=== PATIENT | female | born 1960 | race Caucasian/White ===

== ENCOUNTER 2017-04-09 10:15 | Emergency (ER) | payer BC ==
[2017-04-09 10:23] VITALS: RESP 16; TEMP 98.2
--- NOTE | 2017-04-09 10:32 | EDPHY ---
H & P Time Seen by Provider: 04/09/17 10:29 HPI/ROS: Chief complaint. Knee swelling HPI. Patient is a 56-year-old female presents emergency department with left knee pain and swelling. She has a history of bone on bone knee problems. She has had recent exams by orthopedist who at this point are opting to treat her symptomatically. She has been walking and riding a bicycle which seems to bother it a little but then she has played tennis twice in the last 2 weeks. No injury while playing tennis but afterwards she has pain and swelling especially to the lateral aspect of her left knee. Today she had some radiation to the outside of her left thigh and outside of her left calf but no calf pain and no medial thigh pain. No swelling other than to her knee. No low back pain. ROS Constitutional. no fever/chills, no weakness Eyes. no problems with vision ENT. no sore throat, no nasal drainage Cardiovascular. no chest pain Respiratory. no shortness of breath, no cough Abdominal. no abdominal pain, no nausea/vomiting, no diarrhea . no problems urinating MS. Left knee pain and swelling Skin. no rash Lymph. no swollen glands Neuro. no headache, no dizziness, no difficulty walking or with speech Past Medical/Surgical History: Past medical history coronary bypass, left knee surgery, hypothyroidism, melanoma Social History: , nonsmoker, no alcohol Smoking Status: Never smoked Physical Exam: General Appearance: Alert well-developed female mild distress vital signs are stable Eyes: Pupils equal and round no pallor or injection. ENT, Mouth: Mucous membranes are moist. Respiratory: There are no retractions, lungs are clear to auscultation. Cardiovascular: Regular rate and rhythm. Gastrointestinal: Abdomen is soft and nontender, no masses, bowel sounds normal. Neurological: Awake and alert, sensory and motor exams grossly normal. Skin: Warm and dry, no rashes. Musculoskeletal: Neck is supple nontender. Extremities mild swelling to the left knee. Lateral joint line tenderness. No instability distress. No pain to the left hip with range of motion or palpation. No calf pain or swelling. Psychiatric: Patient is oriented X 3, there is no agitation. Constitutional: Initial Vital Signs Temperature (C) 36.8 C 04/09/17 10:18 Heart Rate 75 04/09/17 10:18 Respiratory Rate 16 07/30/17 10:18 Blood Pressure 133/72 H 04/09/17 10:18 O2 Sat (%) 98 04/09/17 10:18 O2 Delivery Mode Room Air Allergies/Adverse Reactions: No Known Allergies Allergy (Unverified 08/03/15 07:40) Home Medications: Medication Instructions Recorded Multivitamins [Multivitamin (*)] 1 tab PO DAILY 09/09/13 Atorvastatin Calcium [Lipitor 40 40 mg PO DAILY 08/01/15 mg (*)] Levothyroxine [Synthroid 100 mcg 100 mcg PO DAILY 08/01/15 (*)] buPROPion XL [Wellbutrin 150mg XL] 300 mg PO DAILY 08/03/15 Amphet Asp and D/Amphet [Adderall 10 mg PO BID 12/12/16 10 MG (*)] Cholecalciferol Vit D3 [Vitamin D3 5,000 units PO DAILY 12/12/16 (*)] [place]-3 Fatty Acids [Fish Oil 1000 1,000 mg PO DAILY 12/12/16 mg (*)] Zolpidem Tartrate [Ambien 5MG (*)] 10 mg PO HS PRN 12/12/16 oxyCODONE/APAP 5/325 [Percocet 1 tab PO Q4-6PRN PRN #20 tab 04/09/17 5/325] Medical Decision Making - Diagnostics Imaging Results: Imaging Impressions Knee X-Ray 04/09/17 10:57 Impression: Findings consistent with degenerative osteoarthritis have progressed in all 3 compartments. X-ray left knee shows degenerative arthritis that has progressed from previous x -rays. No evidence for fracture dislocation ED Course/Re-evaluation: Re-evaluation at 11:45 a.m. and patient, her and I discussed imaging study results, treatment plan including criteria for return importance of follow -up and further evaluation. She expresses understanding and agreement Patient has a splint at home Differential Diagnosis: I think that this is degenerative arthritis. Exacerbation of her discomfort from playing tennis. I also considered DVT and hip injury Departure - Departure Disposition: Home, Routine, Self-Care Clinical Impression: Left knee pain Qualifiers: Chronicity: acute Qualified Code(s): M25.562 - Pain in left knee Condition: Good Instructions: Knee Pain (ED) Additional Instructions: Ice and elevation next 24 hours. Wear your splint next 2-3 days. Easy activity. Ibuprofen or Aleve for inflammation. Percocet as needed for pain. Return for worsening symptoms. Follow up with Dr. Walker and Jamil for further evaluation Referrals: Garcia Cole MD [Primary Care Provider] - As per Instructions Garcia Walker MD [Medical Doctor] - As per Instructions Phuong Negron MD [Medical Doctor] - As per Instructions Prescriptions: oxyCODONE/APAP 5/325 [Percocet 5/325] 1 tab PO Q4-6PRN PRN #20 tab PRN Reason: Pain, Moderate
[2017-04-09 12:17] VITALS: BP 144/68; PULSE 79; O2SAT 94
== END 2017-04-09 12:16 | disposition home or self-care (01) ==
DX: M25.562 Pain in left knee (principal); Z85.820 Personal history of malignant melanoma of skin; Z95.1 Presence of aortocoronary bypass graft

== ENCOUNTER → 2017-04-24 | Outpatient (CLI) | payer BC | LOC: BMCIMAGING 15:20 | PROVIDERS: ATTEND Internal Medicine Rheumatology | DX: M19.041 Primary osteoarthritis, right hand (principal); M19.042 Primary osteoarthritis, left hand ==

== ENCOUNTER → 2017-06-21 | Outpatient (CLI) | payer BC, OTHER | LOC: FIMAGING 14:34 | PROVIDERS: ATTEND Orthopaedic Surgery | DX: M17.12 Unilateral primary osteoarthritis, left knee (principal) ==

== ENCOUNTER 2017-07-19 06:11 | Inpatient (IN) | payer BC ==
[~2017-07-19 06:11] MED LIST: ROPIVACAINE 0.2% 80 MG, EPINEPHrine 0.2 MG, KETOROLAC TROMETHAMINE 30 MG in BAG 0 ML IU ONE; TRANEXAMIC ACID 3,000 MG in NS 50 ML IRR ONE
[2017-07-19] MEDS ORDERED: ceFAZolin 2 GM/SWFI 2 GM/20 ML SYR IVP ONE (06:39)
[2017-07-19] MEDS ORDERED: FAMOTIDINE 20 MG TAB PO ONE (06:39)
[2017-07-19] MEDS ORDERED: DEXAMETHASONE 4 MG/ML VIAL IVP ONE (06:39)
[2017-07-19] MEDS ORDERED: ACETAMINOPHEN 325 MG TAB PO ONE (06:39)
[2017-07-19] MEDS ORDERED: LR 1,000 ML IV ONE (06:40)
[2017-07-19] MEDS ORDERED: LIDOCAINE 1% 2 ML INJ ID PRN (06:40)
[2017-07-19] MEDS ORDERED: TRANEXAMIC ACID 3,000 MG/50 ML BAG IRR ONE (06:46)
[2017-07-19] MEDS ORDERED: VANCOMYCIN 1 GM VIAL ONE (06:46)
--- NOTE | 2017-07-19 07:10 | PDHPUP ---
History & Physical Update H&P update statement: This history and physical update is based on an assessment of the patient which was completed after admission or registration (within 24 hours), but prior to the surgery/procedure. H&P update: H&P reviewed & patient examined, no change in patient's condition since H&P completed
--- NOTE | 2017-07-19 07:49 | PDANEPAE ---
ANE Past Medical History - Cardiovascular History Hx Hypertension: Yes Hx Arrhythmias: No Hx Coronary Artery / Peripheral Vascular Disease: Yes Hx CHF / Valvular Disease: No Hx Palpitations: No Cardiovascular History Comment: CABG 09/10/2013 - Pulmonary History Hx COPD: No Hx Asthma/Reactive Airway Disease: No Hx Recent Upper Respiratory Infection: No Hx Oxygen in Use at Home: No Hx Sleep Apnea: No Sleep Apnea Screening Result - Last Documented: Negative - Neurologic History Hx Cerebrovascular Accident: No Hx Seizures: No Hx Dementia: No - Endocrine History Hx Diabetes: No Obesity: no - Renal History Hx Renal Disorders: No - Liver History Hx Hepatic Disorders: No - Neurological & Psychiatric Hx Hx Neurological and Psychiatric Disorders: No - Cancer History Hx Cancer: Yes Cancer History Comment: MELANOMA REMOVED 12/2012 - Congenital Disorder History Hx Congenital Disorders: No - GI History Hx Gastrointestinal Disorders: Yes Gastrointestinal History Comment: 20 YEARS AGO ULCER - Other Health History Other Health History: PSORIASIS ON SCALP- SM - Chronic Pain History Chronic Pain: No - Surgical History Prior Surgeries: BROWLIFT 8 YEARS AGO. MENSICUS TEAR 2010 ANE Review of Systems Review of Systems: - Exercise capacity METS (RN): 5 METS ANE Patient History - Allergies Allergies/Adverse Reactions: No Known Allergies Allergy (Unverified 08/03/15 07:40) - Home Medications Home Medications: Atorvastatin Calcium [Lipitor 40 mg (*)] 40 mg PO DAILY 08/01/15 [Last Taken ] Levothyroxine [Synthroid 100 mcg (*)] 100 mcg PO DAILY 08/01/15 [Last Taken 04/27] buPROPion XL [Wellbutrin 150mg XL] 300 mg PO DAILY 08/03/15 [Last Taken 07/19/17 ] Amphet Asp and D/Amphet [Adderall 10 MG (*)] 10 mg PO BID 12/12/16 [Last Taken 07/19/17] Zolpidem Tartrate [Ambien 5MG (*)] 10 mg PO HS PRN 12/12/16 [Last Taken 07/18/17 ] Folic Acid [Folic Acid 1 MG (*)] 1 mg PO DAILY 07/03/17 [Last Taken 07/12/17] Losartan Potassium [Cozaar 25 mg (*)] 25 mg PO DAILY 07/03/17 [Last Taken ] Venlafaxine Xr [Effexor Xr 37.5MG (*)] 37.5 mg PO DAILY 07/03/17 [Last Taken 04/27] - NPO status NPO Since - Liquids (Date): 07/18/17 NPO Since - Liquids (Time): 21:00 NPO Since - Solids (Date): 07/18/17 NPO Since - Solids (Time): 18:00 - Smoking Hx Smoking Status: Never smoked - Family Anes Hx Family Hx Anesthesia Complications: none ANE Labs/Vital Signs - Vital Signs Blood Pressure: 157/79 Heart Rate: 64 Respiratory Rate: 16 O2 Sat (%): 99 Height: 165.1 cm Weight: 69.853 kg ANE Physical Exam - Airway Neck exam: FROM Mallampati Score: Class 2 Mouth exam: normal dental/mouth exam - Pulmonary Pulmonary: no respiratory distress - Cardiovascular Cardiovascular: regular rate and rhythym - ASA Status ASA Status: II ANE Anesthesia Plan Anesthesia Plan: spinal
[2017-07-19] MEDS ORDERED: MIDAZOLAM 2 MG/2 ML VIAL ONE ×2 (07:56→08:40)
[2017-07-19] MEDS ORDERED: MIDAZOLAM 2 MG/2 ML VIAL IVP ONE (08:00)
[2017-07-19] MEDS ORDERED: fentaNYL 100 MCG/2 ML INJ ONE (08:07)
[2017-07-19] MEDS ORDERED: LIDOCAINE 2% 5 ML SDV ONE ×2 (08:15→09:49)
[2017-07-19] MEDS ORDERED: PROPOFOL/EMULSION 500 MG/50 ML BOTTLE IV ONE (08:15)
[2017-07-19] MEDS ORDERED: PROPOFOL 200 MG/20 ML VIAL ONE (09:02)
[2017-07-19] MEDS ORDERED: BISACODYL 10 MG SUPP PR PRN (09:39)
[2017-07-19] MEDS ORDERED: MAGNESIUM HYDROXIDE 30 ML UDCUP PO PRN (09:39)
[2017-07-19] MEDS ORDERED: PROMETHAZINE HCL 25 MG/ML INJ IVP PRN (09:39)
[2017-07-19] MEDS ORDERED: DIPHENOXYLATE/ATROPINE LOMOTIL 1 TAB PO PRN (09:39)
[2017-07-19] MEDS ORDERED: ONDANSETRON DISINTEGRATING 4 MG TAB PO PRN (09:39)
[2017-07-19] MEDS ORDERED: PROMETHAZINE HCL 25 MG SUPPR PR PRN (09:39)
[2017-07-19] MEDS ORDERED: diphenhydrAMINE 25 MG CAP PO PRN (09:39)
[2017-07-19] MEDS ORDERED: LACTULOSE 20 GM/30 ML UDCUP PO PRN (09:39)
[2017-07-19] MEDS ORDERED: METOCLOPRAMIDE 10 MG/2 ML VIAL IVP PRN (09:39)
[2017-07-19] MEDS ORDERED: ONDANSETRON 4 MG/2 ML VIAL IVP PRN ×2 (09:39→10:43)
[2017-07-19] MEDS ORDERED: POLYETHYLENE GLYCOL 3350 17 GM PKT PO PRN (09:39)
[2017-07-19] MEDS ORDERED: TEMAZEPAM 15 MG CAP PO PRN (09:39)
--- NOTE | 2017-07-19 09:39 | POSTOPPROG ---
Post Op Note Date of Operation: 07/19/17 Surgeon: Barry Black Licensed Vocational Nurse: jann black Anesthesiologist: dr. beal Anesthesia: Spinal, Other (Specify) (adductor canal block) Pre-op Diagnosis: left knee OA Post-op Diagnosis: same Indication: left knee pain due to OA that failed conservative measures Procedure: L TKA robot assisted Findings: severe knee OA Inf/Abcess present in the surg proc area at time of surgery?: No EBL: 50-100
[2017-07-19] MEDS ORDERED: ZOLPIDEM TARTRATE 5 MG TAB PO PRN (09:40)
[2017-07-19] MEDS ORDERED: ROPIVACAINE HCL 150 MG/30 ML INJ ONE (09:49)
[2017-07-19] MEDS ORDERED: LR 1,000 ML IV SCH (10:00)
[2017-07-19] MEDS ORDERED: LR 500 ML IV PRN (10:43)
[2017-07-19] MEDS ORDERED: fentaNYL 100 MCG/2 ML INJ IVP PRN (10:43)
[2017-07-19] MEDS ORDERED: HYDROCODONE/APAP 5/325 TAB PO PRN (10:43)
[2017-07-19] MEDS ORDERED: NALOXONE HCL 0.4 MG/ML INJ IVP PRN (10:43)
--- NOTE | 2017-07-19 10:45 | POSTANESTH ---
Post Anesthetic Evaluation Cardiovascular Status: Normal, Stable Respiratory Status: Normal, Stable Level of Consciousness/Mental Status: Can Participate in Eval Pain Control: Adequate, Prn Tx Ordered Nausea/Vomiting Control: Adequate, Prn Tx Ordered Complications Possibly Related to Anesthesia: None Noted
[2017-07-19] MEDS: oxyCODONE IR 5 MG TAB PO PRN ×4 (11:14→21:25)
[2017-07-19] MEDS: CYCLOBENZAPRINE 10 MG TAB PO PRN ×2 (12:45→21:53)
[2017-07-19] MEDS: ADDERALL 10 MG TAB PO SCH (12:46)
[2017-07-19] MEDS: ACETAMINOPHEN 325 MG TAB PO SCH ×2 (12:46→17:22)
[2017-07-19] MEDS: ceFAZolin 2 GM/DEXTROSE 100 ML IV SCH ×2 (14:32→19:34)
[2017-07-19] MEDS: ASPIRIN 325 MG TAB PO SCH (19:33)
[2017-07-19] MEDS: SENNOSIDES/DOCUSATE SODIUM TAB PO SCH (19:34)
[2017-07-19] MEDS: FAMOTIDINE 20 MG TAB PO SCH (19:34)
[2017-07-20] MEDS: ACETAMINOPHEN 325 MG TAB PO SCH ×3 (00:36→12:01)
[2017-07-20] MEDS: oxyCODONE IR 5 MG TAB PO PRN ×4 (00:36→11:24)
[2017-07-20 05:53] LABS: HEMATOCRIT 34.3 % (38.0-47.0); HEMOGLOBIN 11.6 g/dL (12.6-16.3)
[2017-07-20 07:32] VITALS: BP 111/89; PULSE 70; RESP 12; TEMP 98.3; O2SAT 100
[2017-07-20] MEDS: SENNOSIDES/DOCUSATE SODIUM TAB PO SCH (07:52)
[2017-07-20] MEDS: FAMOTIDINE 20 MG TAB PO SCH (07:53)
[2017-07-20] MEDS: ASPIRIN 325 MG TAB PO SCH (07:53)
[2017-07-20] MEDS: ADDERALL 10 MG TAB PO SCH ×2 (08:05→12:39)
[2017-07-20] MEDS ORDERED: LOSARTAN POTASSIUM 25 MG TAB PO SCH (09:00)
[2017-07-20] MEDS ORDERED: LEVOTHYROXINE 100 MCG TAB PO SCH (09:00)
[2017-07-20] MEDS ORDERED: buPROPion XL 150 MG TAB PO SCH (09:00)
[2017-07-20] MEDS ORDERED: VENLAFAXINE XR 37.5 MG CAP PO SCH (09:00)
[2017-07-20] MEDS ORDERED: ATORVASTATIN CALCIUM 40 MG TAB PO SCH (09:00)
--- NOTE | 2017-07-20 09:39 | SOAPPROG ---
SOAP Progress Note Assessment/Plan: Assessment: Patient is doing well POD 1 s/p L TKA Pain management: pain is well controlled on oral pain meds. VTE ppx: recommend aspirin daily for 3 weeks, cont THELMA and SCDs Anemia: level is expected initially postop. Asymptomatic. Continue to monitor D/c planning: d/c to home today pending release from PT Plan: 07/20/17 09:38 Subjective: Mavis is doing well today, denies SOB, chest pain and N/V. Objective: Vital Signs Temp Pulse Resp BP Pulse Ox 36.8 C 70 12 111/89 H 100 07/20/17 07:27 07/20/17 07:27 07/20/17 07:27 07/20/17 07:53 07/20/17 07:27 Laboratory Results 07/20/17 04:43 07/19/17 07/20/17 07/21/17 05:59 05:59 05:59 Intake Total 1700 300 Output Total 2300 200 Balance -600 100 LLE; incision dressing is clean and dry, NVI, +pf/df ICD10 Worksheet Patient Problems: Problems Problem Status Onset Primary localized osteoarthritis of left knee Acute Medication overdose Acute Personal history of coronary artery disease Acute
--- NOTE | 2017-07-20 15:09 | ASDISCHSUM ---
Discharge Information Plan Status:Home with No Needs Medically Cleared to Leave: Discharge Date:07/20/2017 01:23 PM CM D/C Disposition:Home, Routine, Self-Care ADT D/C Disposition:Home, Routine, Self-Care Projected Discharge Date:07/20/2017 01:23 PM Transportation at D/C: Discharge Delay Reason: Follow-Up Date:07/20/2017 01:23 PM Discharge Slot: Final Diagnosis: Placement Information Patient Contact Information Contact Name:ANN Relationship: Address:[address] City:[place] Alternate Phone: State/Zip Code:[place] [address] Email: Financial Information Financial Class:HMO and PPO Plans Primary Plan Desc: OUT OF STATE PPO Primary Plan Number:[id number] Secondary Plan Desc: Secondary Plan Number: Assessment Information CM [employer] Assessment CJR Did you go to joint Answers: No (why?) Notes: Patient was unaware of class? class, sending online video link SISI Note SISI Note Notes: Mavis is planning to discharge home independently with support from her . She is planning to attend outpatient physical therapy and will be riding the bus that her friend did after her knee surgery. Mavis expressed complications with obtaining her medications, but she is working with Saniya from Dr. Yuan' office on this matter. She has not attended the Joint Class, but I am sending her a link to the online video. Her hope for this surgery is to get back to playing tennis. Date Signed: 07/11/2017 12:38 PM Electronically Signed By:Lupis Hwang [facility] Progress Note CM Note CM Note Notes: When case management contacted pt ore-surgery pt indicated she would be interested in HHC but PT clear pt for outpatient and pt spoke w and she no longer wants HHC. No CM d/c needs identified. Date Signed: 07/20/2017 03:09 PM Electronically Signed By:DORENE Fishman Intervention Information
--- NOTE | 2017-07-20 16:15 | GOP ---
[f rep st] OPERATIVE REPORT DATE OF OPERATION: 07/19/2017 SURGEON: Reva Peña MD QA REVIEWER: NGHIA Gamez. ANESTHESIA: Spinal. PREOPERATIVE DIAGNOSIS: Left knee osteoarthritis. POSTOPERATIVE DIAGNOSIS: Left knee osteoarthritis. PROCEDURE PERFORMED: Total knee arthroplasty with computer navigation and robotic assist. FINDINGS/PATHOLOGY: Severe lateral and patellofemoral osteoarthritis. ESTIMATED BLOOD LOSS: 30 cc. INDICATIONS: This is a 56-year-old female with severe and progressive pain and deformity of the left knee unresponsive to conservative care. Risks and benefits of the surgical intervention were explained in detail. DESCRIPTION OF PROCEDURE: The patient was brought to the operative room and placed on the table in the supine position. Spinal anesthesia was induced without difficulty. A pneumatic tourniquet was applied about the left proximal thigh, and the leg was prepped and draped in a sterile fashion. The leg prado was applied. After exsanguination by elevation the tourniquet was inflated to 250 mm of mercury. Incision was made anterior medial from the tibial tuberosity to a point 2 cm proximal to the superior pole of the patella. Medial parapatellar arthrotomy was carried out from the superior pole of the patella and posteriorly in line with the fibers of the Type II VMO. The medial collateral ligament was elevated and the infrapatellar fat pad was resected. The patella was everted and the articular surface was excised. A 35 mm patellar button was placed. Attention was turned first to the distal aspect of the left femur. At 3 cm proximal to the medial rise of the femur, 2 percutaneous half pins were placed for fixation of the femoral array. In a similar fashion, 2 pins were placed anteromedial on the tibia for fixation of the tibial array. External land marking and registration of the hip center was performed without difficulty. Internal femoral and tibial registration was carried out without difficulty and the femoral and tibial checkpoints were placed and verified for accuracy. Attention was turned to the femur. The foot print for the size 5 femoral component was cut with the saw using the [employer] robotic system and verified for accuracy against the CT based plan. In a similar fashion, saw was used to cut the footprint for the size 5 tibial component using the [employer] system and verified for accuracy against the CT based plan. The tibial articular surface was excised without difficulty, followed by the intercondylar box cut. The knee was extended and the remnants of the medial and lateral meniscus were excised. The posterior capsule was injected with ropivacaine, epinephrine and Toradol. A size 5 MIS mini-keel tibial tray was positioned. Trial reduction was then carried out. There was excellent range of motion, alignment, and stability using the 9 mm polyethylene. All trials were then removed. The joint was thoroughly irrigated and carefully dried. Two packages of cement and 2 grams of vancomycin were mixed in the vacuum mixer and placed on the fixation surfaces of all surfaces of the components. The components were implanted and all excess cement was thoroughly removed. The permanent 11 mm polyethylene was placed without difficulty. The tourniquet was deflated and all bleeders were coagulated. The wound was thoroughly irrigated and closed using interrupted sutures of 2-0 Vicryl for the joint capsule. The subcu was closed with 3-0 Vicryl and the skin with 4-0 Monocryl. Dermabond and Steri-Strips were applied followed by a compressive dressing. The patient was then moved from the operating room to the recovery room in good condition, having tolerated the procedure well. /[id number]/MODL MTDD
--- NOTE | 2017-07-20 17:36 | GDS ---
[f rep st] DISCHARGE SUMMARY ADMISSION DIAGNOSIS: Left knee osteoarthritis. DISCHARGE DIAGNOSIS: Left knee osteoarthritis. PROCEDURE: Left total knee arthroplasty, robot assisted. VTE PROPHYLAXIS: Aspirin recommended 3 weeks daily. BRIEF DESCRIPTION OF HOSPITAL STAY: Patient was admitted for an elective joint arthroplasty. The pa tient tolerated the procedure well and has passed physical therapy. The patient was given appropriat e antibiotic prophylaxis and venous thromboembolism prophylaxis. The patient's pain was well control led on oral pain medication, patient was holding down food, and had urinated. Decision was made to d ischarge the patient. The patient was given post-operative prescriptions pre-operatively. PLAN: Please follow up as scheduled with Dr. Peña at [facility] July h at 1:15. /[id number]/MODL
== END 2017-07-20 13:23 | disposition home or self-care (01) | DRG 470 ==
LOC: F3N 06:11
PROVIDERS: ADMIT Orthopaedic Surgery; ATTEND Orthopaedic Surgery
DX: M17.12 Unilateral primary osteoarthritis, left knee (principal); D62 Acute posthemorrhagic anemia
CPT/HCPCS: 97110-GP; 97116-GP; 97161-GP; 97165-GO; 97530-GP; 97535-GO; C1713; J0171; J0690; J1100; J1885; J2250; J2704; J2795; J3010; J3370